=== PATIENT | male | born 1960 | race Caucasian/White ===

== ENCOUNTER 2022-06-02 06:53 | Outpatient (CLI) | payer BC | END 2022-06-02 06:54 | disposition home or self-care (01) | LOC: LABBT 06:53 | PROVIDERS: ATTEND Ophthalmology Retina Specialist | DX: Z01.812 Encounter for preprocedural laboratory examination (principal); H43.311 Vitreous membranes and strands, right eye; Z20.822 Contact with and (suspected) exposure to COVID-19 | CPT/HCPCS: 87811 ==